=== PATIENT | female | born 1945 | race African-American/Black ===

== ENCOUNTER 2022-01-06 08:06 | Outpatient (CLI) | payer OTHER, MEDICAID | END 2022-01-06 08:07 | disposition home or self-care (01) | LOC: BICCT 08:06 | PROVIDERS: ATTEND Surgery | DX: K43.2 Incisional hernia without obstruction or gangrene (principal) | CPT/HCPCS: 74177; 82565 ==

== ENCOUNTER 2024-01-05 09:04 | Outpatient (CLI) | payer OTHER | END 2024-01-05 09:05 | disposition home or self-care (01) | LOC: BICMRI 09:04 | PROVIDERS: ATTEND Orthopaedic Surgery | DX: M75.121 Complete rotator cuff tear or rupture of right shoulder, not specified as traumatic (principal); S43.431A Superior glenoid labrum lesion of right shoulder, initial encounter; M24.111 Other articular cartilage disorders, right shoulder; M62.511 Muscle wasting and atrophy, not elsewhere classified, right shoulder; M77.8 Other enthesopathies, not elsewhere classified ==

== ENCOUNTER 2024-03-21 19:38 | Emergency (ER) | payer OTHER ==
[2024-03-21] MEDS ORDERED: Ketorolac Tromethamine 30 MG (1 mL) VIAL ONE (20:17)
[2024-03-21] MEDS ORDERED: diphenhydrAMINE 50 MG/ML VIAL ONE (20:17)
[2024-03-21] MEDS ORDERED: Metoclopramide HCl 10 MG (2 mL) VIAL ONE (20:17)
[2024-03-21 20:21] LABS: #Basophils Less than 0.03 10x3/uL (0.0-0.2); %Basophils 0.2 % (0.0-1.0); %Eosinophils 2.9 % (0.0-10.0); %Lymphocytes 30.1 % (21.0-51.0); %Monocytes 7.3 % (0.0-10.0); %Neutrophils 59.3 % (42.0-75.0); Hematocrit 40.6 % (36.0-47.0); Hemoglobin 12.6 g/dL (12.0-16.0); Mean Corpuscular Hemoglobin 24.5 pg (27.0-31.0); Mean Platelet Volume 9.5 fL (7.4-10.4); Platelet Count 336 10x3/uL (130-400); RBC Distribution Width 15.4 % (11.5-14.5); Red Blood Cell (RBC) Count 5.14 mill/uL (4.20-5.40)
[2024-03-21 20:25] LABS: Bilirubin Negative (Negative); Blood, Urine Negative (Negative); CAUTI Indications for Culture Fever or rigors; Clarity Clear (Clear); Glucose, Urine (Dipstick) Normal (Negative); Ketone, Urine Negative (Negative); Leukocyte 250 Leu/uL (Negative); Nitrite Negative (Negative); Protein, Urine (Dipstick) 10 mg/dL (Neg-Trace); RBC/HPF 0-3 HPF (0-3); Specific Gravity, Urine 1.027 (1.002-1.036); Urobilinogen Normal mg/dL (Less than 2); pH, Urine 5.5 (5.0-9.0)
[2024-03-21 20:32] LABS: Bacteria/HPF 1+ HPF (None Seen)
[2024-03-21 20:33] LABS: Urine Culture Reflex No No
[2024-03-21 20:35] LABS: ALT (SGPT) 16 U/L (8-55); AST (SGOT) 19 U/L (5-34); Albumin 3.5 g/dL (3.4-4.8); Alkaline Phosphatase 129 U/L (40-110); Anion Gap 13 mmol/L (10-20); BUN (Urea Nitrogen) 20 mg/dL (9.8-20.1); Bilirubin, Total 0.3 mg/dL (0.2-1.2); Calc. Creatinine Clearance 0 mL/min (70-130); Calcium 10.1 mg/dL (7.8-10.44); Carbon Dioxide 24 mmol/L (23-31); Chloride 107 mmol/L (98-107); Estimated GFR 69; Globulin 3.4 g/dL (2.4-3.5); Glucose 90 mg/dL (83-110); Magnesium 2.1 mg/dL (1.6-2.6); Potassium 3.5 mmol/L (3.5-5.1); Protein, Total 6.9 g/dL (5.8-8.1); Sodium 140 mmol/L (136-145)
== END 2024-03-21 20:05 | disposition home or self-care (01) ==
LOC: ERS 19:38
DX: R51.9 Headache, unspecified (principal); N39.0 Urinary tract infection, site not specified; I10 Essential (primary) hypertension; Z55.6 Problems related to health literacy
CPT/HCPCS: 73110; 73130; 80053; 81001; 83735; 85025; 94760; J1200; J1885; J2765; 96374; 96375